=== PATIENT | female | born 1955 | race Caucasian/White ===

== ENCOUNTER → 2025-10-26 | Outpatient (CLI) | payer MEDICARE ==
[~2025-10-26] MED LIST: GADOTERATE MEGLUMINE 10 MMOL/20 ML VIAL IV ONE
--- NOTE | 2025-10-27 15:58 | HMCIMG ---
EXAM: MR Left Upper Extremity With and Without IV contrast, Shoulder CLINICAL HISTORY: M25.512 ??? Pain in left shoulder TECHNIQUE: Multisequence, multiplanar magnetic resonance images of the left shoulder were obtained before and after intravenous contrast administration. CONTRAST: Gadolinium-based contrast administered per institutional protocol. COMPARISON: None provided. FINDINGS ROTATOR CUFF TENDONS Supraspinatus: Full-thickness tear with a mediolateral gap of approximately 2.5 cm between retracted tendon edges; anteroposterior extent of the tear is approximately 1.9 cm. The tendon is retracted to the level of the greater tuberosity footprint, which shows cortical contour irregularity compatible with chronic enthesopathic change. Infraspinatus: Tendinosis with subtle intraosseous cystic change and subchondral marrow edema deep to the insertion; no discrete full-thickness tear. Subscapularis: Tendinosis without definite full-thickness tear. Teres minor: Tendon intact. BICEPS TENDON Long head of biceps tendon is normally located within the bicipital groove, with mild peritendinous fluid but no ziyad tear. GLENOHUMERAL JOINT / LABRUM / CAPSULE There is advanced erosive arthropathy of the glenohumeral joint with extensive marginal erosions, diffusely thick, enhancing synovium, and near-complete loss of articular cartilage over the humeral head, with only a narrow residual opposing cartilage rim at the glenoid. Subchondral T2-hypointense sclerosis and small cystic changes are present in the humeral head and glenoid. The inferior glenohumeral ligament complex is thickened up to approximately 9 mm with adjacent capsular edema. The superior labrum demonstrates degenerative fraying and signal compatible with a Type I (degenerative) SLAP lesion; no displaced labral fragment is seen. 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 The acromion is type II (curved). Coracohumeral ligament is thickened to approximately 1.2 cm, and the coracoacromial ligament is thickened to approximately 0.7 cm, potentially contributing to subacromial impingement in the clinical setting. BURSAE AND RECESSES Large joint effusion with fluid in the superior subscapularis recess and subscapular bursa. Subacromial???subdeltoid bursa shows fluid, synovial thickening, and post-contrast enhancement, consistent with bursitis and synovitis. BONES AND MARROW No acute fracture or aggressive marrow-replacing lesion. Subchondral sclerosis and cystic change are present along the humeral head and glenoid, as above, in keeping with advanced erosive arthropathy and secondary osteoarthritic remodeling. MUSCLES Supraspinatus muscle bulk is largely maintained without high-grade fatty atrophy. Infraspinatus and subscapularis muscle bulk are preserved. MISCELLANEOUS No discrete soft tissue mass or abnormal extra-articular enhancement suggesting neoplasm or abscess. IMPRESSION * Large full-thickness supraspinatus tendon tear (approximately 2.5 cm mediolateral by 1.9 cm anteroposterior) with maintained supraspinatus muscle bulk and greater tuberosity enthesopathic change, representing a structurally significant rotator cuff tear. * Advanced erosive glenohumeral arthropathy with extensive marginal erosions, thick enhancing synovium, near-complete humeral head cartilage loss, and subchondral sclerosis/cystic change, most compatible with an inflammatory arthropathy (e.g., rheumatoid or seronegative inflammatory arthritis) in this clinical context; chronic septic arthritis, neuropathic arthropathy, and crystal arthropathy are secondary considerations and can be further distinguished by clinical, serologic, and, where appropriate, joint fluid evaluation. * Rotator cuff tendinosis of the subscapularis and infraspinatus with intraosseous cystic change and marrow edema at the rotator cuff footprint, moderate acromioclavicular osteoarthritis, type II acromion, thickened coracohumeral and coracoacromial ligaments, and associated joint effusion, subscapular and subacromial???subdeltoid bursitis, and capsular thickening (including a Type I SLAP lesion), together reflecting chronic impingement and inflammatory-degenerative changes about the shoulder. /[place]
== END | disposition home or self-care (01) ==
LOC: RAH 14:33
PROVIDERS: ATTEND Nurse Practitioner Family
DX: M75.102 Unspecified rotator cuff tear or rupture of left shoulder, not specified as traumatic (principal); M25.512 Pain in left shoulder; M25.612 Stiffness of left shoulder, not elsewhere classified; M19.012 Primary osteoarthritis, left shoulder; M62.512 Muscle wasting and atrophy, not elsewhere classified, left shoulder; M25.412 Effusion, left shoulder; R60.0 Localized edema; M25.812 Other specified joint disorders, left shoulder; M75.82 Other shoulder lesions, left shoulder
CPT/HCPCS: 73223; A9575